=== PATIENT | female | born 1970 | race Caucasian/White ===

== ENCOUNTER → 2017-01-26 | Outpatient (CLI) | payer BC ==
--- NOTE | 2017-01-26 16:14 | DIAGNOSTIC IMAGING REPORT ---
LEFT ANKLE MIN 3 VIEWS ROUTINE CLINICAL HISTORY: 46 years-old Female presenting with LEFT ANKLE INJURY, twisted ankle. TECHNIQUE: Frontal, mortise, and lateral views of the left ankle were obtained. COMPARISON: None. FINDINGS: Ankle mortise intact. Surgical fixation hardware noted in the base of the first metatarsal. No acute fracture or malalignment. No significant degenerative change. Mild regional soft tissue swelling. IMPRESSION: No acute osseous injury of the left ankle. Electronically signed by: Carl Jimenez M.D. 01/26/2017 4:12 PM Dictated Date/Time: 01/26/2017 4:11 PM
== END | disposition home or self-care (01) ==
LOC: C.RAD 15:32
PROVIDERS: ATTEND Physician Assistant Surgical
DX: S99.912A Unspecified injury of left ankle, initial encounter (principal); X50.1XXA Overexertion from prolonged static or awkward postures, initial encounter